=== PATIENT | male | born 1990 | race Caucasian/White ===

== ENCOUNTER 2017-11-24 13:23 | Emergency (ER) | payer OTHER ==
[2017-11-24 13:41] VITALS: BP 118/75
--- NOTE | 2017-11-24 14:14 | EDPHY ---
H & P Stated Complaint: possibly swallowed glass shard Time Seen by Provider: 11/24/17 13:45 - Personal History Current Tetanus/Diphtheria Vaccine: Yes Current Tetanus Diphtheria and Acellular Pertussis (TDAP): Yes - Medical/Surgical History Hx Asthma: No Hx Chronic Respiratory Disease: No Hx Diabetes: No Hx Cardiac Disease: No Hx Renal Disease: No Hx Cirrhosis: No Hx Alcoholism: No Hx HIV/AIDS: No Hx Splenectomy or Spleen Trauma: No Other PMH: denies - Social History Smoking Status: Never smoked Constitutional: Initial Vital Signs Temperature (C) 37 C 11/24/17 13:39 Heart Rate 77 11/24/17 13:39 Respiratory Rate 16 11/24/17 13:39 Blood Pressure 118/75 11/24/17 13:39 O2 Sat (%) 97 11/24/17 13:39 O2 Delivery Mode Room Air Allergies/Adverse Reactions: No Known Allergies Allergy (Unverified 11/24/17 13:39) Home Medications: Medication Instructions Recorded NK [No Known Home Meds] 11/24/17 Medical Decision Making - Diagnostics Imaging Results: Imaging Impressions Chest X-Ray 11/24/17 14:13 Impression: Normal chest x-ray. Imaging: I viewed and interpreted images myself ED Course/Re-evaluation: CHIEF COMPLAINT: Possibly swallowed glass HISTORY OF PRESENT ILLNESS: The patient is a 27 y/o male complaining of potentially swallowing a piece of glass from a [employer] at lunch today. While at lunch, his brother jokingly placed a piece of broken glass in his food. Towards the end of his meal he swallowed something odd and thought there was a minor amount of blood in his mouth. However, he is unsure if this red color was blood or some barbecue sauce that he ate. He was advised by an interventional radiologist friend to present to the emergency department as the size of the potential glass is unknown. Denies throat pain, abdominal pain, urinary or bowel complaints, fever. REVIEW OF SYSTEMS: A 10 point review of systems was performed and is negative with the exception of the elements mentioned in the history of present illness. PHYSICAL EXAM: HR, BP, O2 Sat, RR. Temp noted General Appearance: Alert, well hydrated, appropriate, and non-toxic appearing. Head: Atraumatic without scalp tenderness or obvious injury Eyes: Pupils equal, round, reactive to light and accommodation, EOMI, no trauma , no injection. Ears: Clear bilaterally, no perforation, normal landmarks Nose: Atraumatic, no rhinorrhea, clear. Throat: There is no erythema or exudates, no lesions, normal tonsils, mucus membranes moist. Neck: Supple, nontender, no lymphadenopathy. Respiratory: No retractions, no distress, no wheezes, and no accessory muscle use. Lungs are clear to auscultation bilaterally. Cardiovascular: Regular rate and rhythm, no murmurs, rubs, or gallops. Good capillary refill all extremities. Gastrointestinal: Abdomen is soft, nontender, non-distended, no masses, no rebound, no guarding, no peritoneal signs. Musculoskeletal: Normal active ROM of all extremities, atraumatic. Neurological: Alert, appropriate, and interactive. Non-focal neuro. Skin: No rashes, good turgor, no nodules on palpation. Past medical history: Denies Past surgical history: Denies Family history: Denies Social history: Visiting [place] from [place], employed, single DIAGNOSTICS/PROCEDURES/CRITICAL CARE TIME: Chest x-ray: Normal DIFFERENTIAL DIAGNOSIS: The differential diagnosis for the patient's potential foreign body ingestion included but was not limited to foreign body ingestion, appendicitis, cholecystitis, hernias, testicular torsion, gastritis, and urinary tract infection. MEDICAL DECISION MAKING: The patient is a 27 y/o male presenting with potentially swallowing a piece of glass from a [employer] at lunch today. Patient has a normal physical exam. Chest x-ray ordered. 1435: Patient's chest x-ray is normal. 1440: Reassessed patient and discussed imaging findings. Return precautions provided; patient is comfortable with this plan. Departure - Departure Disposition: Home, Routine, Self-Care Clinical Impression: Foreign body ingestion Qualifiers: Encounter type: initial encounter Qualified Code(s): T18.9XXA - Foreign body of alimentary tract, part unspecified, initial encounter Condition: Good Instructions: Foreign Body Ingestion (ED) Additional Instructions: 1. Your chest x-ray is normal. 2. Follow-up with your primary doctor within 72 hours for unimproved symptoms. 3. Return to the Emergency Department for fever, chest pain, shortness of breath , bowel complaints increasing pain or other worsening of condition. Referrals: [facility],. [Clinic] - As per Instructions Report Scribed for: Blanco John Report Scribed by: Roro Saez Date of Report: 11/24/17 Time of Report: 14:14
== END 2017-11-24 14:48 | disposition home or self-care (01) ==
DX: T18.9XXA Foreign body of alimentary tract, part unspecified, initial encounter (principal); X58.XXXA Exposure to other specified factors, initial encounter